=== PATIENT | female | born 1960 | race Caucasian/White ===

== ENCOUNTER → 2016-06-08 | Outpatient (CLI) | payer BC | END | disposition home or self-care (01) | LOC: C.MAMM 14:36 | PROVIDERS: ATTEND Internal Medicine Endocrinology, Diabetes & Metabolism | DX: N95.8 Other specified menopausal and perimenopausal disorders (principal) ==

== ENCOUNTER → 2016-06-30 | Outpatient (CLI) | payer BC ==
--- NOTE | 2016-06-30 15:21 | MAMMOGRAPHY REPORT ---
BILATERAL DIGITAL SCREENING MAMMOGRAM TOMOSYNTHESIS WITH CAD: 06/30/2016 TECHNIQUE: Breast tomosynthesis in addition to standard 2D mammography was performed. Current study was also evaluated with a Computer Aided Detection (CAD) system. COMPARISON: Comparison is made to exams dated: 06/28/2015 mammogram, 06/24/2014 mammogram, 02/01/2012 ma mmogram, 08/16/2010 mammogram, 02/25/2013 mammogram, and 08/02/2009 mammogram - [facility] nt. BREAST COMPOSITION: There are scattered areas of fibroglandular density in both breasts. FINDINGS: No suspicious masses, calcifications, or areas of architectural distortion are noted in e ither breast. There has been no significant interval change compared to prior exams. A biopsy marke r clip is again noted in the right upper inner quadrant. Scattered bilateral benign-appearing calci fications are not significantly changed. Faint asymmetry in the right lateral breast middle depth o n the CC view is similar to prior exams including the 2009 exam, and felt to represent normal fibrog landular tissue. IMPRESSION: ACR BI-RADS CATEGORY 2: BENIGN There is no mammographic evidence of malignancy. A 1 year screening mammogram is recommended. The p atient will receive written notification of the results. Approximately 10% of breast cancers are not detected with mammography. A negative mammographic repor t should not delay biopsy if a clinically suggestive mass is present. Bren Dunaway M.D. /:06/30/2016 14:54:43 Tire Bagger: Bria JIMÉNEZ)([place]), [facility] letter sent: Normal 1/2 BI-RADS Code: ACR BI-RADS Category 2: Benign
== END | disposition home or self-care (01) ==
LOC: C.MAMM 13:43
PROVIDERS: ATTEND Family Medicine
DX: Z12.31 Encounter for screening mammogram for malignant neoplasm of breast (principal)

== ENCOUNTER → 2017-05-08 | Outpatient (CLI) | payer BC | END | disposition home or self-care (01) | LOC: C.PAPS 13:31 | PROVIDERS: ATTEND Family Medicine | DX: Z01.419 Encounter for gynecological examination (general) (routine) without abnormal findings (principal) ==

== ENCOUNTER → 2017-07-02 | Outpatient (CLI) | payer OTHER ==
--- NOTE | 2017-07-02 15:04 | MAMMOGRAPHY REPORT ---
BILATERAL DIGITAL SCREENING MAMMOGRAM TOMOSYNTHESIS WITH CAD: 07/02/2017 CLINICAL HISTORY: Routine screening. TECHNIQUE: Breast tomosynthesis in addition to standard 2D mammography was performed. Current study was also evaluated with a Computer Aided Detection (CAD) system. COMPARISON: Comparison is made to exams dated: 06/30/2016 mammogram, 06/28/2015 mammogram, 06/24/2014 julian mogram, 02/25/2013 mammogram, 02/01/2012 mammogram, and 08/16/2010 mammogram - [facility] er. BREAST COMPOSITION: There are scattered areas of fibroglandular density in both breasts. FINDINGS: There is a stable biopsy marker clip in the upper inner posterior right breast. No suspici ous mass, architectural distortion or cluster of suspicious microcalcifications is seen. IMPRESSION: ACR BI-RADS CATEGORY 1: NEGATIVE There is no mammographic evidence of malignancy. A 1 year screening mammogram is recommended. The pa tient will receive written notification of the results. Approximately 10% of breast cancers are not detected with mammography. A negative mammographic report should not delay biopsy if a clinically suggestive mass is present. Danuta Hendrickson M.D. ay/:07/02/2017 14:50:37 Machine Striper: Cadence JASSO(R)([place]), [facility] letter sent: Normal 1/2 BI-RADS Code: ACR BI-RADS Category 1: Negative
== END | disposition home or self-care (01) ==
LOC: C.MAMM 13:40
PROVIDERS: ATTEND Family Medicine
DX: Z12.31 Encounter for screening mammogram for malignant neoplasm of breast (principal)

== ENCOUNTER 2025-03-30 23:03 | Observation (INO) ==
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
[2025-03-30 23:44] LABS: Base Excess VBG 4.2 mEq/L; HCO3 VBG 30 mmol/L; Oxygen Saturation VBG < 60.0 %; PCO2 VBG 50 mmHg (38-50); PO2 VBG 33 mmHg; pH VBG 7.39 (7.36-7.41)
[2025-03-30 23:47] LABS: Hematocrit (blood only) 23.2 % (37.0-47.0); Hemoglobin 7.0 g/dl (12.0-16.0); Mean Corpuscular Hemoglobin 26.3 pg (25.0-34.0); Mean Corpuscular Volume 87.2 fL (80.0-100.0); Platelet Count 69 K/uL (130-400); RDW Standard Deviation 63.7 fL (36.4-46.3); Red Blood Count 2.66 M/uL (4.20-5.40); White Blood Count 6.10 K/ul (4.8-10.8)
[2025-03-31 00:08] LABS: Alanine Aminotransferase 12.0 U/L (7-52); Albumin Globulin Ratio 0.9 (0.9-2); Albumin Level 3.6 gm/dl (3.4-5.0); Alkaline Phosphatase 83.0 U/L (34-104); Anion Gap 9.0 (3-11); Bilirubin,Total 0.4 mg/dl (0.2-1.0); Blood Urea Nitrogen 25.0 mg/dl (6-23); Calcium 9.3 mg/dl (8.6-10.3); Carbon Dioxide 27.0 mmol/L (21-32); Chloride 100.0 mmol/L (98-107); Creatinine Clr Calc Pharmacy 92.4 ml/min; Globulin 3.9 gm/dl (2.5-4.0); Glucose 129.0 mg/dl (70-99(Fasting)); Potassium 3.6 mmol/L (3.5-5.1); Sodium 136.0 mmol/L (136-145); Total Protein 7.5 gm/dl (6.0-8.3)
[2025-03-31 00:14] LABS: ALC (manual) 1.83 K/uL (1.2-3.4); ANC (manual) 3.23 K/uL (1.4-6.5); Anisocytosis Present; Polychromasia 1+; Tear Drop Cells 2+
[2025-03-31 00:23] LABS: INR 1.0 (0.9-1.1); Prothrombin Time 10.3 Seconds (9.0-12.0)
--- NOTE | 2025-03-31 00:32 | XRay Report ---
Exam(s): XR CXR 1 VIEW EXAM: XR Chest, 1 View CLINICAL HISTORY: Dyspnea. TECHNIQUE: Frontal view of the chest. COMPARISON: No relevant prior studies available. FINDINGS: Lungs: No focal consolidation. The pulmonary vasculature demonstrates no significant radiographic abnormality. Pleural space: Unremarkable. No pneumothorax. No large pleural effusion. Heart: Unremarkable. No cardiomegaly. Mediastinum: No significant abnormality identified. The trachea is midline. Bones/joints: Unremarkable. No acute fracture. Other findings: Stable postsurgical changes involving the cervical region. IMPRESSION: No focal consolidation or acute cardiopulmonary process identified. Electronically signed by: Frandy Ovalles MD 03/31/25 00:30 AM
[2025-03-31 00:47] LABS: Appearance Urine Clear (Clear); Bacteria Urine Automated None Seen (None Seen); Cast Urine Automated 0-2 /lpf (0-2); Glucose Urine UA Negative (Negative); RBC Urine Automated 0-2 /hpf (0-2)
[2025-03-31] MEDS ORDERED: SODIUM CHLORIDE 0.9% 100 ML IV PRN (01:14)
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
[2025-03-31] MEDS ORDERED: ALBUTEROL HFA 8 GM INHALER INH PRN (03:01)
[2025-03-31] MEDS ORDERED: ONDANSETRON INJ 2 MG/ML 2 ML VIAL IV PRN (03:01)
[2025-03-31] MEDS: LEVOTHYROXINE SODIUM 112 MCG TABLET PO SCH (06:02)
[2025-03-31 07:59] VITALS: TEMP 98.8; O2SAT 96
[2025-03-31] MEDS: CHOLECALCIFEROL 25 MCG (1000 UNITS) TAB PO SCH (08:26)
[2025-03-31] MEDS: ADVANCED PROBIOTIC 625 MG CAPSULE PO SCH (08:26)
[2025-03-31] MEDS: FLUTICASONE/VILANTEROL 100/25MCG 14 PUFFS/INHALER INH SCH (08:27)
--- NOTE | 2025-03-31 12:02 | Electrocardiogram Report ---
Test Reason : Blood Pressure : */* mmHG Vent. Rate : 81 BPM Atrial Rate : 81 BPM P-R Int : 176 ms QRS Dur : 82 ms QT Int : 400 ms P-R-T Axes : 69 24 35 degrees QTcB Int : 464 ms Normal sinus rhythm Normal ECG When compared with ECG of 12-Jun-2024 09:28, Criteria for Septal infarct are no longer Present Confirmed by Theron Lamas ([id number]) on 03/31/2025 12:02:51 PM Referred By: REFERRED SELF Confirmed By: Theron Lamas
[2025-03-31 12:37] LABS: Hematocrit (blood only) 28.7 % (37.0-47.0); Hemoglobin 8.9 g/dl (12.0-16.0)
--- NOTE | 2025-03-31 13:00 | XCELERA ---
[id number]
[2025-03-31] MEDS: ACETAMINOPHEN 325 MG TAB PO PRN (14:03)
[2025-03-31 14:56] VITALS: BP 173/86; PULSE 76; RESP 16
--- NOTE | 2025-03-31 19:46 | Discharge Summary ---
Discharge Summary Date of Service March 31, 2025 Principal Dx & Hospital Course #1 = Principal Diagnosis (1) Symptomatic anemia: (2) Anemia requiring transfusions: (3) Diffuse large B cell lymphoma: (4) Thrombocytopenia: Plan 64 years old female with a past medical history of FULL CODE @ home, morbid obesity with BMI 40.7 (height 167.6 cm; weight 114.5 kg), lumbar spine DJD, hyperlipidemia, HTN, chronic diastolic CHF with preserved LVEF 55-60% (as noted on 07/02/2024, 2:34pm TTE, CARDS Dr. Shawn Simpson), papillary thyroid CA, s/p thyroidectomy, s/p radioactive iodine ablation, leading to acquired hypothyroidism on synthroid 112 ug PO lFyz-Apeg-Lis- and synthroid 125ug PO eSlj-Cqx-Ftz, and diffuse large B-cell lymphoma (diagnosed on 03/06/2025, [facility], Pathologist Dr. Melody Patel), who presented to [facility] ER on 03/31/2025 with complaint of shortness of breath and dyspnea on exertion present for the past month, gradually worsening in the past week. However, today, 03/31/2025, patient noticed a more significant change in her breathing, without chest pain, nausea, or vomiting. Patient subsequently presented to [facility] ER for evaluation, and was found to have a worsening of her hemoglobin from pre-admission Hb 7.0 g/dL (03/06/2025, 8:16am) to admission Hb 7.0 g/dL (03/30/2025, 11:25pm) with no mucosal bleeding (e.g., hematemesis, hematochezia, melena, hematuria, hemoptysis, epistaxis, etc.). Hematology Oncology Office advised admission, and Hospitalist service was consulted for further evaluation, treatment and admission. Patient was subsequently admitted to the inpatient hospitalist service @ [facility] on 03/31/2025 with the following diagnoses: 1. Acute blood loss anemia of unclear etiology with admission Hb 7.0 g/dL (03/30/2025, 11:25pm) with no mucosal bleeding (e.g., hematemesis, hematochezia, melena, hematuria, hemoptysis, epistaxis, etc.). 2. Past medical history of papillary thyroid CA, s/p thyroidectomy, s/p radioactive iodine ablation, leading to acquired hypothyroidism on synthroid 112 ug PO eWwz-Fyod-Uip- and synthroid 125ug PO [id number]-Sti-Nfs. 3. Current medical history of diffuse large B-cell lymphoma (diagnosed on 03/06/2025, [facility], Pathologist Dr. Melody Patel). The following medical issues were addressed while the patient remained in [facility] on 03/31/2025: 1. Acute blood loss anemia of unclear etiology with admission Hb 7.0 g/dL (03/30/2025, 11:25pm) with no mucosal bleeding (e.g., hematemesis, hematochezia, melena, hematuria, hemoptysis, epistaxis, etc.). Hemoglobin dropped from pre-admission Hb 7.0 g/dL (03/06/2025, 8:16am) to admission Hb 7.0 g/dL (03/30/2025, 11:25pm) with no mucosal bleeding (e.g., hematemesis, hematochezia, melena, hematuria, hemoptysis, epistaxis, etc.). Patient subsequently received 2 units PRBC transfusion in [facility] ER on admission date 03/30/2025. Patient has a post-transfusion Hb 8.9 g/dL (, 11:52am) and feels "50% better than when I came into the hospital; I am ready to go back home now." Patient was subsequently discharged back to her home as patient did not want to remain in [facility] ER any longer, and was subsequently referred back to her [facility] Dr. Randy Sheth within 5-7 days of hospital discharge, for any further diagnostic evaluation of her acute blood loss anemia. 2. Past medical history of papillary thyroid CA, s/p thyroidectomy, s/p radioactive iodine ablation, leading to acquired hypothyroidism on synthroid 112 ug PO fKqp-Bnco-Cfq- and synthroid 125ug PO oPwa-Pdm-Mcq. Patient appears euthyroid on the above regimen with a normal screening TSH 3.112 uIU/mL (03/20/2025, 11:34am). Patient will subsequently continue this same synthroid regimen on hospital discharge back to her home on 03/31/2025. 3. Current medical history of diffuse large B-cell lymphoma (diagnosed on 03/06/2025, [facility], Pathologist Dr. Melody Patel). Patient reports that she has not yet begun chemotherapy as she is still undergoing testing with her [facility] Dr. Randy Sheth on an outpatient basis. Of note, patient underwent repeat TTE (03/31/2025, 1:00pm), as recommended by her [facility] Dr. Randy Sheth. cf., repeat TTE (03/31/2025, 1:00pm): 1. LVEF 60-65%. No regional wall motion abnormalities noted. Normal LV wall thickness. 2. RV systolic function normal. 3. Borderline LAE. RA mildly dilated. No ASD. Resolution does not allow assessment for PFO. 4. No . No AR. 5. PV not well visualized. 6. No MS. No MR. 7. No TS. Mild TR. 8. Aortic root normal size. Normal IVC size and collapsibility with sniff indicates normal RAP of 3 mm Hg. 9. No pericardial effusion. 10.No pleural effusion. 11.Diastolic dysfunction (grade II pseudonormalization pattern with MV E/A ratio (104.4 cm/sec / 73.9 cm/sec = 1.41). (as per CARDS Dr. Theron Lamas). cf., original TTE (07/02/2024, 2:34pm): 1. LVEF 55-60%. No regional wall motion abnormalities noted. Mild concentric LVH. 2. RV systolic function normal. 3. LA/RA normal size. No ASD. 4. No . No AR. 5. No PS. No WA. 6. No MS. No MR. 7. No TS. 8. Aortic root normal size. Normal IVC size and collapsibility with sniff indicates normal RAP of 3 mm Hg. 9. No pericardial effusion. 10.Diastolic dysfunction (grade II pseudonormalization pattern with MV E/A ratio (72.4 cm/sec / 58.7 cm/sec = 1.23). (as per CARDS Dr. Shawn Simpson). Admission HPI Per Admitting Provider The patient is a 64-year-old female with a past medical history including diffuse large B-cell lymphoma, thrombocytopenia, anemia, hypertension, hypothyroidism, thyroid cancer, LVH, dyslipidemia and lumbar spine DJD. She presents to the emergency department with complaint of shortness of breath endorsed dyspnea on exertion gradually worsening the past week. However today, she noticed a more significant change in her breathing, without chest pain or nausea or vomiting. She presented to the emergency department for evaluation, and was found to have a worsening of her hemoglobin from 7.7-7.0,. Hematology oncology office advised admission, and Sunday hospitalist service was consulted for further evaluation, treatment and admission. Patient has been ordered 2 units PRBC by ED. Discharge Exam Constitutional General: Comfortable, cooperative and coherent. Wide awake and alert. Not confused, lethargic, or obtunded. Patient speaks in complete, fluent, and articulate sentences, without pause, interruption, cough, or wheeze. HEENT: NC/AT. EOMI. PERRL. No nystagmus, gaze paresis, anisocoria, miosis, mydriasis, chemosis, hyphema, scleral injection, conjunctivitis, pterygium, facial droop, dysarthria, or pronator drift. No otorrhea. No rhinorrhea. Neck: Supple, no stridor, bruit, or goiter. Jugular venous pressure 3 cm above the sternal angle of [place], which is typically 5 cm above the right atrium. Lymph: No anterior/posterior cervical lymphadenopathy, supraclavicular/infraclavicular lymphadenopathy, axilla/epitrochlear/inguinal lymphadenopathy. Chest: Symmetric rise and fall with respirations. Non-tender to palpation. Heart: RRR, S1 and S2. No S3 or S4 summation gallop. No tripartite friction rub. No murmur. Lungs: Clear to auscultation and percussion. No audible expiratory wheeze, egophony, pectoriloquy, increase in tactile fremitus, or flatness/dullness to percussion at the bases. Abd: Soft, non-tender, non-distended. Bowel sounds auscultated in all 4 quadrants. No rebound, guarding, Conway's sign, or organomegaly. Ext: No clubbing, cyanosis, or edema. 2+ pedal pulses bilaterally. Skin: No decubitus ulcer or enanthem or exanthem. Neuro: Alert and oriented in regards to person, place, time, and situation. No tremors, tics, or myoclonus. DTR+. 5/5 motor strength in all 4 extremities, both proximally and distally. Urology: No sanchez catheter. No purewick. No urethral discharge. Discharge Plan Discharge Items Patient Disposition: Home - Self-Care Reason For Visit: SYMPTOMATIC ANEMIA Discharge Diagnosis: Symptomatic anemia RESOLVED with 2 units of packed RBC transfusion to treat admission Hb 7.0 g/dL (03/30/2025, 11:25pm) and post-transfusion Hb 8.9 g/dL (03/31/2025, 11:52am). Condition on Discharge: Fair Activity: Resume your previous activity Lifting: Gradually increase as tolerated Bathing: No limitations Sexual Activity: When tolerated Exercise/Sports: Gradually increase as tolerated Driving/Machine Use: No limitations Weightbearing: Full weightbearing Non-emergency contact: Primary Care Provider Call non-emergency contact if: you have any medication questions Follow-up/Referrals: Kaila Chisholm MD [Primary Care Provider] - Diet: Heart Healthy Addtl Attending Provider Instructions: 1. See your PCP Dr. Kaila Chisholm within 5-7 days of hospital discharge. 2. See your [facility] Dr. Randy Sheth within 5-7 days of hospital discharge. Pending Studies at Discharge: No Stand-Alone Forms: [facility] [email or web address], Smoking Cessation Medications and DC Order Prescriptions: Continued fluticasone propion-salmeterol [Advair Diskus] 100-50 mcg/dose blister with device 1 inh INHALATION QAM Qty: 180 3RF cholecalciferol (vitamin D3) 25 mcg (1,000 unit) capsule 25 mcg PO DAILY scopolamine base 1 mg over 3 days patch 3 day 1 patch transdermal Q3D PRN (Reason: motion sickness) Qty: 4 2RF ergocalciferol (vitamin D2) [Vitamin D2] 1,250 mcg (50,000 unit) capsule 1,250 mcg PO WK Qty: 12 0RF trazodone 50 mg tablet 150 mg PO HS Qty: 270 3RF albuterol sulfate 90 mcg/actuation Hfa Aerosol Inhaler 1 inh INHALATION QID PRN (Reason: sob) Probiotic 3 billion cell Capsule 3,000 mmu cells PO DAILY Rx Instructions: administer with a meal levothyroxine [Synthroid] 125 mcg tablet 125 mcg PO [id number] Rx Instructions: TAKES FRI, SAT & SUN. levothyroxine [Synthroid] 112 mcg tablet 112 mcg PO [id number] Rx Instructions: TAKES MON, TUES, WED, & THURS. Discharge Orders: Discharge Order (Routine); Ordered 03/31/25 Ordered By: Trevor Chapa Admission Data Admit Date/Time: 03/31/25 02:16 Attending Provider: Trevor Chapa Admit Provider: Neto Su Primary Care Provider: Kaila Chisholm Other Providers: Nikita East; Neto Su Other Interventions: Discharge Summary Assessment (RN) Last Done: 03/31/25 14:54 Hospital Stay Data Consultations 03/31/25 01:15 Consult Hematology Routine 03/31/25 01:41 ED Decision to Admit Stat Pending Results Patient Have Any Pending Studies at Discharge: No Discharge Instructions Given to Patient (Per Discharging Provider) 1. See your PCP Dr. Kaila Chisholm within 5-7 days of hospital discharge. 2. See your [facility] Dr. Randy Sheth within 5-7 days of hospital discharge. Total Time Total Time Spent Total Time Spent (In Minutes): 35 minutes. Of this time period, 19 minutes were spent in coordinating patient's discharge. Coding Level of Care Code 34349 INP/OBS DISCH >30 MIN Diagnoses Symptomatic anemia D64.9 Anemia requiring transfusions D64.9 Diffuse large B cell lymphoma C83.30 Thrombocytopenia D69.6
[2025-04-03] MEDS ORDERED: LEVOTHYROXINE SODIUM 125 MCG TABLET PO SCH (06:30)
== END 2025-03-31 14:54 | disposition home or self-care (01) ==
LOC: ED 23:03 → EDINP 23:03 → SUATTDRO 03-31 02:16 → EDINP 03-31 03:03

== ENCOUNTER 2025-04-17 23:09 | Inpatient (IN) ==
[2025-04-17] MEDS: OPTIRAY 320 100ml IT ONE (23:52)
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
[2025-04-17] MEDS: ONDANSETRON INJ 2 MG/ML 2 ML VIAL IV STA (23:58)
[2025-04-17] MEDS: MoRPHine SULFATE 4 MG/ML 1 ML CARP\\VIAL IV STA (23:58)
[2025-04-17] MEDS: FAMOTIDINE 20MG IV PUSH 20 MG/5 ML SYR IV STA (23:58)
[2025-04-17] MEDS: SODIUM CHLORIDE 0.9% 500 ML IV STA (23:59)
[2025-04-18 00:26] LABS: Hematocrit (blood only) 25.7 % (37.0-47.0); Hemoglobin 8.3 g/dL (12.0-16.0); Mean Corpuscular Hemoglobin 27.8 pg (25.0-34.0); Mean Corpuscular Volume 86.0 fL (80.0-100.0); Platelet Count 79 K/uL (130-400); RDW Standard Deviation 62.2 fL (36.4-46.3); Red Blood Count 2.99 M/uL (4.20-5.40); White Blood Count 4.20 K/ul (4.8-10.8)
[2025-04-18 00:30] LABS: Appearance Urine Clear (Clear); Bacteria Urine Automated None Seen (None Seen); Cast Urine Automated 0-2 /lpf (0-2); Epithelial Cell Urine Auto 0-2 /hpf (0-2); Glucose Urine UA Negative (Negative); RBC Urine Automated 0-2 /hpf (0-2)
[2025-04-18 00:44] LABS: Anion Gap 5 (3-11); Blood Urea Nitrogen 27 mg/dl (6-23); Calcium 8.7 mg/dl (8.6-10.3); Carbon Dioxide 28 mmol/L (21-32); Chloride 102 mmol/L (98-107); Creatinine Clr Calc Pharmacy 113.5 ml/min; Glucose 115 mg/dl (70-99(Fasting)); Potassium 4.2 mmol/L (3.5-5.1); Sodium 135 mmol/L (136-145)
--- NOTE | 2025-04-18 00:57 | XRay Report ---
EXAM: XR chest 1V portable CLINICAL HISTORY: chest pain. TECHNIQUE: An X-ray image of the chest is obtained in AP projection. COMPARISON: X-ray of the chest, dated 04/03/[address] angiography of the chest, dated 04/05/2025. FINDINGS: The right-sided permacath is seen with the distal end at the right atrium. Pulmonary Parenchyma: No evidence of consolidation, collapse, or focal opacities. No pulmonary nodules are identified. Left lower lung zone atelectatic band. No evidence of pleural effusion or pleural thickening. Heart and Mediastinum: Heart size and shape are normal. No mediastinal widening or masses. No hilar or mediastinal lymphadenopathy. Bony Thorax: Bony thorax appears intact without fractures or deformities. Soft Tissues: Surgical clips seen in the neck. ECG leads are seen overlying the chest. IMPRESSION: 1. No acute cardiopulmonary abnormalities are identified. 2. Right side permacath is seen with the distal end at the right atrium. Stable. 3. No significant interval changes from the previous study. Electronically signed by Mina Guaman 04-18-2025 12:57 AM
[2025-04-18 01:03] LABS: Alanine Aminotransferase 13 U/L (7-52); Albumin Globulin Ratio 1.0 (0.9-2); Albumin Level 3.4 gm/dl (3.4-5.0); Alkaline Phosphatase 59 U/L (34-104); Bilirubin,Total 0.4 mg/dl (0.2-1.0); Globulin 3.3 gm/dl (2.5-4.0); Lipase 438 U/L (11-82); Magnesium 2.4 mg/dl (1.7-2.4); Total Protein 6.7 gm/dl (6.0-8.3); Uric Acid < 1.5 mg/dl (2.6-7.2)
[2025-04-18 01:10] LABS: INR 1.0 (0.9-1.1); Partial Thromboplastin Time 23 Seconds (21-31); Prothrombin Time 10.4 Seconds (9.0-12.0)
[2025-04-18 01:33] LABS: Anisocytosis Present; Immature Granulocytes # (auto) 0.30 K/uL (0.01-0.20); Immature Granulocytes % (auto) 7.1 %; Tear Drop Cells 2+
[2025-04-18] MEDS: MoRPHine SULFATE 4 MG/ML 1 ML CARP\\VIAL IV STA (01:53)
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
--- NOTE | 2025-04-18 02:08 | CT Scan Report ---
EXAM: CT abd pelvis IV con only CLINICAL HISTORY: Epig pain. TECHNIQUE: CT of the abdomen and pelvis was performed with contrast, 94 ml optiray 320 with the following protocol: axial images with, and reconstructed coronal and sagittal images. One of the following dose reduction techniques was utilized for this exam: Automated exposure control, adjustment of the mA and/or kV according to patient size, and use of iterative reconstruction. COMPARISON: Comparison is made with previous imaging study dated 02/06/2025 FINDINGS: Abdomen: Liver: enlarged (20cm ) with two hypodense focal lesions seen in segment of the right lobe measuring about 9 and 6 mm (stable) Hepatic vasculature and biliary ducts are unremarkable. Gallbladder and Biliary System: The gallbladder is normal in size and shape and is seen harbouring a radiodense stone measuring about 16 mm in diameter (stable). No wall thickening, or pericholecystic fluid, The common bile duct is normal in caliber without dilation. Pancreas: Pancreatic head, body, and tail are visualized and appear normal in size and density. No pancreatic masses or calcifications were noted. The pancreatic duct is not dilated. Spleen: enlarged (18 cm) (stable) No splenic lesions or masses were identified. Appendix: No evidence of appendiceal abscess or perforation. Kidneys and Adrenal Glands: Both kidneys are normal in size, shape, and position. Cortical thickness is within normal limits. No renal calculi or hydronephrosis. Adrenal glands are unremarkable with no evidence of masses or hyperplasia. Pelvis: Urinary Bladder: Normal in contour and wall thickness. No intraluminal lesions identified. Uterus: Normal in size and contour. No masses or abnormal thickening. Ovaries: Not well visualized but no gross abnormalities noted. Peritoneal and Retroperitoneal Structures: No free fluid or abnormal fluid collections were identified within the abdomen or pelvis. No lymphadenopathy was noted. Bowel: The visualized bowel loops are normal in caliber and appearance. No evidence of bowel obstruction or wall thickening. Bones and Soft Tissues: Lytic 1 cm lesion is seen in the right anterior acetabular pillar with intact cortical outline , dedicated assessment is advised if clinically warranted (stable) Lower lumbar spondylodegenerative changes and vacuum phenomena.(stable) IMPRESSION: 1. No evidence of acute intra-abdominal pathology. 2. Hepatosplenomegaly (stable) 3. hepatic focal lesions likely cysts (stable) 4. calcular gall bladder (stable) 5. Lytic 1 cm lesion is seen in the right anterior acetabular pillar with intact cortical outline , dedicated assessment is advised if clinically warranted (stable) 6. Lower lumbar spondylodegenerative changes and vacuum phenomena.(stable) Electronically signed by Mina Guaman 04-18-2025 02:08 AM
[2025-04-18] MEDS ORDERED: ACYCLOVIR 400 MG TAB PO PRN (03:02)
[2025-04-18] MEDS ORDERED: MoRPHine SULFATE 4 MG/ML 1 ML CARP\\VIAL IV PRN (03:02)
[2025-04-18] MEDS ORDERED: predniSONE 20 MG TAB PO PRN (03:02)
[2025-04-18] MEDS ORDERED: SCOPOLAMINE 1 MG/72 HR TDSY PATCH TD PRN (03:02)
[2025-04-18] MEDS ORDERED: MoRPHine SULFATE 2 MG/ML CARP IV PRN (03:02)
[2025-04-18] MEDS ORDERED: POLYETHYLENE (MIRALAX) 17 GM PACK PO PRN (03:02)
[2025-04-18] MEDS ORDERED: ALBUTEROL HFA 8 GM INHALER INH PRN (03:02)
[2025-04-18] MEDS: LACTATED RINGER'S 1,000 ML IV SCH (04:05)
[2025-04-18] MEDS: MoRPHine SULFATE 4 MG/ML 1 ML CARP\\VIAL IV PRN (05:20)
[2025-04-18 06:54] LABS: Magnesium 2.3 mg/dl (1.7-2.4); Uric Acid < 1.5 mg/dl (2.6-7.2)
[2025-04-18] MEDS: LEVOTHYROXINE SODIUM 125 MCG TABLET PO SCH (07:12)
[2025-04-18] MEDS: FLUTICASONE/VILANTEROL 100/25MCG 14 PUFFS/INHALER INH SCH (08:26)
[2025-04-18] MEDS: NYSTATIN/TRIAMCIN OINT 15 GM TUBE EXT SCH (08:28)
[2025-04-18] MEDS: ACYCLOVIR 400 MG TAB PO SCH (08:28)
[2025-04-18] MEDS: predniSONE 20 MG TAB PO SCH (08:28)
[2025-04-18] MEDS: ENOXAPARIN INJ 40 MG/0.4 ML SYR SQ SCH (08:29)
[2025-04-18] MEDS: ONDANSETRON INJ 2 MG/ML 2 ML VIAL IV PRN (09:42)
[2025-04-18 13:01] VITALS: RESP 16
--- NOTE | 2025-04-18 14:03 | Hospitalist Progress Note ---
Date of Service April 18, 2025 Assessment & Plan (1) Pancreatitis: (2) Lymphoma: (3) Dyslipidemia: (4) Hypothyroidism: Plan 64yo female with history of diffuse large B-cell lymphoma recently started on chemotherapy and hypothyroidism who presented with abdominal pain and bloating. Workup on arrival revealed an elevated lipase at 438. She was admitted for management of acute pancreatitis. #Acute pancreatitis - elevated lipase likely secondary to chemotherapy agents. Patient with epigastric abdominal pain. CT of the abdomen with no pancreatitis present - LR at 200mL/hr x 2L - Pain regimen: Tylenol PRN mild pain, morphine 2-4 mg PRN modsevere pain - Zofran PRN nausea - One episode of emesis this morning but patient feels this was due to taking her morning medications on an empty stomach. She has not had any further nausea or vomiting since then and is not experiencing abdominal pain now - Diet advanced to clear liquids. If well-tolerates, can advance to low fat diet tomorrow 04/19 #Diffuse large B-cell lymphoma / recent tumor lysis syndrome - uric acid WNL now following treatment with Rasburicase and IVF - Continue IVF as above - Uric acid, Mag, BMP stable - repeat with AM labs - Continue Allopurinol 300mg po daily - Received final dose of Prednisone 04/18 per chemotherapy protocol - Continue Claritin 10mg po qHS for bone pain - Heme-Onc consultation appreciated - no change in current management - Continue Acyclovir 400mg po BID and Bactrim 3x weekly per chemotherapy regimen - chronic suppressive therapy #Pancytopenia - near baseline. No active bleed - Monitor CBC. Transfuse for hgb <7.0 #Hypothyroidism - TSH WNL in Feb 2025. Continue Synthroid, alternating 125 and 112mcg VTE PPx: Lovenox Dispo: continued inpatient stay Advanced diet Updated at bedside Admission and Anticipated Discharge Date Admission Date: April 18, 2025 Subjective Patient seen and evaluated at bedside with her present. She reports that this morning, she felt nauseated and did have 1 episode of vomiting. She believes this was due to taking her morning medications on an empty stomach. She reports that she has not had any further vomiting since her episode earlier this morning. She denies any nausea at this time. Her abdominal pain is much improved now. She had clear liquids and tolerated this well. We discussed continuing the clear liquid diet today and likely advancement to a low fat diet tomorrow. No additional complaints or concerns at this time. Physical Exam Physical Exam: General: No acute distress, nondiaphoretic, well-developed, well-nourished. Skin: Warm, dry. No rashes or peripheral edema noted. Cardiac: Regular rate and rhythm without murmurs gallops or rubs. Pulm: Clear to auscultation bilaterally without wheezes, rales or rhonchi. Normal respiratory effort. 98% on room air. Abdominal: Soft, nondistended. Very minimal tenderness to palpation of epigastrium. Bowel sounds present. Neuro: A&O x3. No focal neurological deficits. Results & Data Results & Data Vital Signs (Past 12 Hours) Vital Signs Temp Pulse Pulse Pulse Resp BP BP 04/18/25 13:00 97.3 F L 61 16 130/72 04/18/25 08:00 66 13 117/66 04/18/25 06:59 62 04/18/25 05:35 04/18/25 05:30 59 L 15 04/18/25 05:26 112/04/18/25 05:26 112/04/18/25 05:26 112/04/18/25 05:26 112/04/18/25 05:26 112/04/18/25 05:24 61 20 04/18/25 05:21 64 14 04/18/25 05:12 65 15 04/18/25 05:00 60 15 04/18/25 04:51 59 L 19 04/18/25 04:42 62 16 04/18/25 04:30 61 18 04/18/25 04:21 63 19 04/18/25 04:12 60 14 04/18/25 04:00 129/66 04/18/25 04:00 129/66 04/18/25 04:00 129/66 04/18/25 04:00 129/66 04/18/25 04:00 129/04/18/25 04:00 61 16 04/18/25 03:51 58 L 16 04/18/25 03:42 62 14 04/18/25 03:30 58 L 15 04/18/25 03:21 63 14 04/18/25 03:12 56 L 16 04/18/25 03:06 148/76 H 04/18/25 03:06 148/76 H 04/18/25 03:06 148/76 H 04/18/25 03:06 148/76 H 04/18/25 03:06 148/76 H 04/18/25 03:06 56 L 13 04/18/25 03:03 72 14 04/18/25 02:51 63 16 04/18/25 02:42 58 L 14 04/18/25 02:30 54 L 16 04/18/25 02:21 58 L 12 04/18/25 02:12 56 L 14 04/18/25 02:00 58 L 14 04/18/25 02:00 139/81 04/18/25 02:00 139/81 04/18/25 02:00 139/81 04/18/25 02:00 139/81 04/18/25 02:00 139/81 Pulse Ox O2 Del Method 04/18/25 13:00 98 Room Air 04/18/25 08:00 95 Room Air 04/18/25 06:59 04/18/25 05:35 Room Air 04/18/25 05:30 92 04/18/25 05:26 04/18/25 05:26 04/18/25 05:26 04/18/25 05:26 04/18/25 05:26 04/18/25 05:24 96 04/18/25 05:21 97 04/18/25 05:12 97 04/18/25 05:00 95 04/18/25 04:51 95 04/18/25 04:42 94 04/18/25 04:30 94 04/18/25 04:21 94 04/18/25 04:12 94 04/18/25 04:00 04/18/25 04:00 04/18/25 04:00 04/18/25 04:00 04/18/25 04:00 04/18/25 04:00 94 04/18/25 03:51 92 04/18/25 03:42 94 04/18/25 03:30 93 04/18/25 03:21 96 04/18/25 03:12 100 04/18/25 03:06 04/18/25 03:06 04/18/25 03:06 04/18/25 03:06 04/18/25 03:06 04/18/25 03:06 100 04/18/25 03:03 96 04/18/25 02:51 04/18/25 02:42 04/18/25 02:30 04/18/25 02:21 04/18/25 02:12 04/18/25 02:00 04/18/25 02:00 04/18/25 02:00 04/18/25 02:00 04/18/25 02:00 04/18/25 02:00 Laboratory Results Reviewed CBC, BMP, liver panel, uric acid PG Care Time/CCT Total # of Minutes Spent Total Time Spent with Patient: Total time spent is greater than 50% in coordination of care (as documented) at patient's floor/unit and/or counseling patient: Coding Level of Care Code None Diagnoses Pancreatitis K85.90 Acute pancreatitis complication: unspecified Chronicity: acute Pancreatitis type: unspecified pancreatitis type Lymphoma C85.10 B-cell lymphoma type: unspecified B-cell Lymphoma site: unspecified region Lymphoma type: non-Hodgkin - not in remission Non-Hodgkin lymphoma type: B-cell Dyslipidemia E78.5 Hypothyroidism E03.9 (1) Pancreatitis Acute pancreatitis complication: unspecified Chronicity: acute Pancreatitis type: unspecified pancreatitis type Qualified Code(s): K85.90 - Acute pancreatitis without necrosis or infection, unspecified (2) Lymphoma B-cell lymphoma type: unspecified B-cell Lymphoma site: unspecified region Lymphoma type: non-Hodgkin - not in remission Non-Hodgkin lymphoma type: B-cell Qualified Code(s): C85.10 - Unspecified B-cell lymphoma, unspecified site
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
[2025-04-18 15:44] LABS: Hematocrit (blood only) 24.6 % (37.0-47.0); Hemoglobin 7.8 g/dL (12.0-16.0); Mean Corpuscular Hemoglobin 27.3 pg (25.0-34.0); Mean Corpuscular Volume 86.0 fL (80.0-100.0); Platelet Count 67 K/uL (130-400); RDW Standard Deviation 63.2 fL (36.4-46.3); Red Blood Count 2.86 M/uL (4.20-5.40); White Blood Count 3.20 K/ul (4.8-10.8)
[2025-04-18 16:02] LABS: Anion Gap 3 (3-11); Blood Urea Nitrogen 23 mg/dl (6-23); Calcium 8.2 mg/dl (8.6-10.3); Carbon Dioxide 28 mmol/L (21-32); Chloride 101 mmol/L (98-107); Creatinine Clr Calc Pharmacy 117.2 ml/min; Glucose 140 mg/dl (70-99(Fasting)); Potassium 4.4 mmol/L (3.5-5.1); Sodium 132 mmol/L (136-145)
[2025-04-18 16:16] LABS: Alanine Aminotransferase 12 U/L (7-52); Albumin Level 3.1 gm/dl (3.4-5.0); Alkaline Phosphatase 55 U/L (34-104); Bilirubin,Total 0.4 mg/dl (0.2-1.0); Magnesium 2.2 mg/dl (1.7-2.4); Total Protein 6.2 gm/dl (6.0-8.3); Uric Acid < 1.5 mg/dl (2.6-7.2)
[2025-04-18] MEDS: DOCUSATE SODIUM/SENNA 50/8.6MG TAB PO SCH (21:46)
[2025-04-18] MEDS: LORATADINE 10 MG TAB PO SCH (22:04)
[2025-04-19] MEDS: ACETAMINOPHEN 325 MG TAB PO PRN (04:38)
[2025-04-19] MEDS: MoRPHine SULFATE 2 MG/ML CARP IV PRN (06:15)
[2025-04-19 06:40] LABS: Hematocrit (blood only) 26.9 % (37.0-47.0); Hemoglobin 8.7 g/dL (12.0-16.0); Mean Corpuscular Hemoglobin 27.6 pg (25.0-34.0); Mean Corpuscular Volume 85.4 fL (80.0-100.0); Platelet Count 73 K/uL (130-400); RDW Standard Deviation 60.9 fL (36.4-46.3); Red Blood Count 3.15 M/uL (4.20-5.40); White Blood Count 2.92 K/ul (4.8-10.8)
[2025-04-19 07:04] LABS: Anion Gap 5 (3-11); Blood Urea Nitrogen 19 mg/dl (6-23); Calcium 8.8 mg/dl (8.6-10.3); Carbon Dioxide 29 mmol/L (21-32); Chloride 100 mmol/L (98-107); Creatinine Clr Calc Pharmacy 123.1 ml/min; Glucose 92 mg/dl (70-99(Fasting)); Potassium 4.0 mmol/L (3.5-5.1); Sodium 134 mmol/L (136-145)
[2025-04-19 07:06] LABS: Alanine Aminotransferase 12 U/L (7-52); Albumin Level 3.7 gm/dl (3.4-5.0); Alkaline Phosphatase 53 U/L (34-104); Bilirubin,Total 0.5 mg/dl (0.2-1.0); Magnesium 2.4 mg/dl (1.7-2.4); Total Protein 6.8 gm/dl (6.0-8.3); Uric Acid < 1.5 mg/dl (2.6-7.2)
[2025-04-19 07:29] VITALS: TEMP 97.7; O2SAT 99
--- NOTE | 2025-04-19 12:20 | Electrocardiogram Report ---
Test Reason : Blood Pressure : */* mmHG Vent. Rate : 63 BPM Atrial Rate : 63 BPM P-R Int : 192 ms QRS Dur : 82 ms QT Int : 398 ms P-R-T Axes : 69 20 30 degrees QTcB Int : 407 ms Normal sinus rhythm Normal ECG When compared with ECG of 05-Apr-2025 00:11, No significant change was found Confirmed by Melinda Varela (Stephenie) on 04/19/2025 12:20:08 PM Referred By: REFERRED SELF Confirmed By: Melinda Varela
[2025-04-19 13:49] VITALS: BP 130/72; PULSE 66
--- NOTE | 2025-04-19 13:57 | Discharge Summary ---
Discharge Summary Date of Service April 19, 2025 Principal Dx & Hospital Course #1 = Principal Diagnosis (1) Pancreatitis: (2) Lymphoma: (3) Pancytopenia: Plan 64yo female with history of diffuse large B-cell lymphoma recently started on chemotherapy and hypothyroidism who presented with abdominal pain and bloating. Workup on arrival revealed an elevated lipase at 438. She was admitted for management of acute pancreatitis. #Acute pancreatitis - elevated lipase at 438 likely secondary to chemotherapy agents. Patient with epigastric abdominal pain. CT of the abdomen with no pancreatitis present - S/p LR at 200mL/hr x 2L - No further abdominal pain, nausea, or vomiting - Well-tolerated advancement to low fat diet. Reviewed low fat diet options and what foods to avoid, alcohol avoidance, and staying hydrated #Diffuse large B-cell lymphoma / recent tumor lysis syndrome - uric acid WNL now following treatment with Rasburicase and IVF -Received IVF as above - Uric acid, Mag, BMP stable - Continue Allopurinol 300mg po daily - Received final dose of Prednisone 04/18 per chemotherapy protocol - Continue Claritin 10mg po qHS for bone pain - Heme-Onc consultation appreciated - no change in current management. Follow- up outpatient as directed - Continue Acyclovir 400mg po BID and Bactrim 3x weekly per chemotherapy regimen - chronic suppressive therapy #Pancytopenia - near baseline. No active bleed - Monitor CBC. Transfuse for hgb <7.0 #Hypothyroidism - TSH WNL in Feb 2025. Continue Synthroid, alternating 125 and 112mcg VTE PPx: Lovenox Dispo: discharged home 04/19 Notes For Next Care Provider NICOLA Supervision Note: I did not personally see or examine the patient today, but I verified all dawson points of NICOLA Stiles's assessment and plan with the following exceptions/additions: None Medication Changes From Visit no changes Admission HPI Per Admitting Provider Simin Plasencia is a pleasant 64yo female with diffuse large B-cell lymphoma. She follows with Dr. East from Hematology/Oncology. Patient just started her first cycle of chemotherapy with Brad-R-CHP. She reports feeling well for the first two days, however on 04/16/25 she developed some abdominal pain and bloating. Her pain worsened throughout the day. She was seen by Hematology/Oncology today and was found to have tumor lysis syndrome. She was treated with Rasburicase and IVF and sent home with a prescription for Allopurinol. She presents to the ER tonight with worsening abdominal pain. No fever, chills, chest pain, cough, SOB. Discharge Exam General: No acute distress, nondiaphoretic, well-developed, well-nourished. Skin: Warm, dry. No rashes or peripheral edema noted. Cardiac: Regular rate and rhythm without murmurs gallops or rubs. Pulm: Clear to auscultation bilaterally without wheezes, rales or rhonchi. Normal respiratory effort. 99% on room air. Abdominal: Soft, nondistended. Very minimal tenderness to palpation of epigastrium. Bowel sounds present. Neuro: A&O x3. No focal neurological deficits. Discharge Plan Discharge Items Patient Disposition: Home - Self-Care Reason For Visit: ABDOMINAL PAIN, ELEVATED LIPASE Discharge Diagnosis: Pancreatitis Condition on Discharge: Fair Activity: Resume your previous activity Non-emergency contact: Primary Care Provider and Oncologist Call non-emergency contact if: you have any medication questions, your symptoms worsen, your pain is not controlled and you have a fever Follow-up/Referrals: Kaila Chisholm MD [Primary Care Provider] - (Follow-up in 1-2 weeks) Diet: Low Fat Addtl Attending Provider Instructions: Eli, You were admitted to the hospital with pancreatitis. Pancreatitis is inflammation of the pancreas. In your case, it was likely triggered by your chemotherapy agents. Symptoms of pancreatitis include abdominal pain, nausea, and vomiting. You have tolerated your diet advancement and are now ready to be discharged home. Upon discharge from the hospital: * Follow a low-fat diet. Start with small, low-fat, soft or solid meals (such as lean meats, rice, Posta, cooked vegetables, and fruit). Avoid fried, greasy, or fatty foods, and limit alcohol completely. If you feel nauseated or have trouble eating, try bland foods and eat smaller portions more often. * Drink plenty of fluids, such as water or clear juices, to stay hydrated. Dehydration can worsen pancreatitis. * You can take Tylenol as needed for pain. * Continue your other home medications as prescribed. * Follow-up with your PCP in 1-2 weeks. * Follow-up with your oncologist as directed. Please return to the hospital if you experience any of the following: Severe or worsening abdominal pain, persistent vomiting or inability to keep fluids down, fever of 100 1F or higher, shortness of breath, chest pain, confusion, new or worsening diarrhea, passing out, or any other symptoms concerning for you. It was a pleasure taking care of you while you were in the hospital! Pending Studies at Discharge: No Stand-Alone Forms: [facility], Smoking Cessation Medications and DC Order Prescriptions: Continued fluticasone propion-salmeterol [Advair Diskus] 100-50 mcg/dose blister with device 1 inh INHALATION QAM Qty: 180 3RF albuterol sulfate 90 mcg/actuation HFA aerosol inhaler 1 inh INHALATION QID PRN (Reason: sob) Qty: 6.7 1RF cholecalciferol (vitamin D3) 25 mcg (1,000 unit) capsule 25 mcg PO DAILY scopolamine base 1 mg over 3 days patch 3 day 1 patch transdermal Q3D PRN (Reason: motion sickness) Qty: 4 2RF ergocalciferol (vitamin D2) [Vitamin D2] 1,250 mcg (50,000 unit) capsule 1,250 mcg PO WK Qty: 12 0RF trazodone 50 mg tablet 150 mg PO HS Qty: 270 3RF nystatin-triamcinolone 100,000-0.1 unit/gram-% ointment 1 applic topical BID 14 Days Qty: 30 1RF Probiotic 3 billion cell Capsule 3,000 mmu cells PO DAILY Rx Instructions: administer with a meal levothyroxine [Synthroid] 125 mcg tablet 125 mcg PO 3XWK Rx Instructions: TAKES SUN, SUN & SUN. levothyroxine [Synthroid] 112 mcg tablet 112 mcg PO 4XWK Rx Instructions: TAKES MON, , WED, & TH. prednisone 20 mg tablet 20 mg PO DIRECTED PRN (Reason: PER CHEMO REGIMENT) acyclovir 400 mg tablet 400 mg PO BID PRN (Reason: PER CHEMO REGIMENT) sulfamethoxazole-trimethoprim 800-160 mg tablet 1 tab PO 3XWK PRN (Reason: PER CHEMO REGIMENT) Rx Instructions: MON, WED, & FRI Discharge Orders: Discharge Order (Routine); Ordered 04/19/25 Ordered By: Melody Stiles Admission Data Admit Date/Time: 04/18/25 02:07 Attending Provider: Erin Rick Admit Provider: Kristi Olson Primary Care Provider: Kaila Chisholm Other Providers: Kristi Olson; Nikita East Other Interventions: Discharge Summary Assessment (RN) Last Done: 04/19/25 13:48 Hospital Stay Data Consultations 04/18/25 01:45 ED Decision to Admit Stat 04/18/25 04:42 Consult Hematology Routine Diagnostic Imagining Performed Chest X-Ray 04/17/25 23:43 EXAM: XR chest 1V portable CLINICAL HISTORY: chest pain. TECHNIQUE: An X-ray image of the chest is obtained in AP projection. COMPARISON: X-ray of the chest, dated 04/03/[address] angiography of the chest, dated 04/05/2025. FINDINGS: The right-sided permacath is seen with the distal end at the right atrium. Pulmonary Parenchyma: No evidence of consolidation, collapse, or focal opacities. No pulmonary nodules are identified. Left lower lung zone atelectatic band. No evidence of pleural effusion or pleural thickening. Heart and Mediastinum: Heart size and shape are normal. No mediastinal widening or masses. No hilar or mediastinal lymphadenopathy. Bony Thorax: Bony thorax appears intact without fractures or deformities. Soft Tissues: Surgical clips seen in the neck. ECG leads are seen overlying the chest. IMPRESSION: 1. No acute cardiopulmonary abnormalities are identified. 2. Right side permacath is seen with the distal end at the right atrium. Stable. 3. No significant interval changes from the previous study. Electronically signed by Mina Guaman 04-18-2025 12:57 AM Abdomen/Pelvis CT 04/17/25 23:49 EXAM: CT abd pelvis IV con only CLINICAL HISTORY: Epig pain. TECHNIQUE: CT of the abdomen and pelvis was performed with contrast, 94 ml optiray 320 with the following protocol: axial images with, and reconstructed coronal and sagittal images. One of the following dose reduction techniques was utilized for this exam: Automated exposure control, adjustment of the mA and/or kV according to patient size, and use of iterative reconstruction. COMPARISON: Comparison is made with previous imaging study dated 02/06/2025 FINDINGS: Abdomen: Liver: enlarged (20cm ) with two hypodense focal lesions seen in segment of the right lobe measuring about 9 and 6 mm (stable) Hepatic vasculature and biliary ducts are unremarkable. Gallbladder and Biliary System: The gallbladder is normal in size and shape and is seen harbouring a radiodense stone measuring about 16 mm in diameter (stable). No wall thickening, or pericholecystic fluid, The common bile duct is normal in caliber without dilation. Pancreas: Pancreatic head, body, and tail are visualized and appear normal in size and density. No pancreatic masses or calcifications were noted. The pancreatic duct is not dilated. Spleen: enlarged (18 cm) (stable) No splenic lesions or masses were identified. Appendix: No evidence of appendiceal abscess or perforation. Kidneys and Adrenal Glands: Both kidneys are normal in size, shape, and position. Cortical thickness is within normal limits. No renal calculi or hydronephrosis. Adrenal glands are unremarkable with no evidence of masses or hyperplasia. Pelvis: Urinary Bladder: Normal in contour and wall thickness. No intraluminal lesions identified. Uterus: Normal in size and contour. No masses or abnormal thickening. Ovaries: Not well visualized but no gross abnormalities noted. Peritoneal and Retroperitoneal Structures: No free fluid or abnormal fluid collections were identified within the abdomen or pelvis. No lymphadenopathy was noted. Bowel: The visualized bowel loops are normal in caliber and appearance. No evidence of bowel obstruction or wall thickening. Bones and Soft Tissues: Lytic 1 cm lesion is seen in the right anterior acetabular pillar with intact cortical outline , dedicated assessment is advised if clinically warranted (stable) Lower lumbar spondylodegenerative changes and vacuum phenomena.(stable) IMPRESSION: 1. No evidence of acute intra-abdominal pathology. 2. Hepatosplenomegaly (stable) 3. hepatic focal lesions likely cysts (stable) 4. calcular gall bladder (stable) 5. Lytic 1 cm lesion is seen in the right anterior acetabular pillar with intact cortical outline , dedicated assessment is advised if clinically warranted (stable) 6. Lower lumbar spondylodegenerative changes and vacuum phenomena.(stable) Electronically signed by Mina Guaman 04-18-2025 02:08 AM Pending Results Patient Have Any Pending Studies at Discharge: No Discharge Instructions Given to Patient (Per Discharging Provider) Eli, You were admitted to the hospital with pancreatitis. Pancreatitis is inflammation of the pancreas. In your case, it was likely triggered by your chemotherapy agents. Symptoms of pancreatitis include abdominal pain, nausea, and vomiting. You have tolerated your diet advancement and are now ready to be discharged home. Upon discharge from the hospital: * Follow a low-fat diet. Start with small, low-fat, soft or solid meals (such as lean meats, rice, Posta, cooked vegetables, and fruit). Avoid fried, greasy, or fatty foods, and limit alcohol completely. If you feel nauseated or have trouble eating, try bland foods and eat smaller portions more often. * Drink plenty of fluids, such as water or clear juices, to stay hydrated. Dehydration can worsen pancreatitis. * You can take Tylenol as needed for pain. * Continue your other home medications as prescribed. * Follow-up with your PCP in 1-2 weeks. * Follow-up with your oncologist as directed. Please return to the hospital if you experience any of the following: Severe or worsening abdominal pain, persistent vomiting or inability to keep fluids down, fever of 100 1F or higher, shortness of breath, chest pain, confusion, new or worsening diarrhea, passing out, or any other symptoms concerning for you. It was a pleasure taking care of you while you were in the hospital! Total Time Total Time Spent Total Time Spent (In Minutes): Greater than 30 minutes spent completing this discharge process including direct patient care, medication reconciliation, documentation, review of labs and images, and coordination of care. Coding Level of Care Code 42154 INP/OBS DISCH >30 MIN Diagnoses Pancreatitis K85.90 Acute pancreatitis complication: unspecified Chronicity: acute Pancreatitis type: unspecified pancreatitis type Lymphoma C85.10 B-cell lymphoma type: unspecified B-cell Lymphoma site: unspecified region Lymphoma type: non-Hodgkin - not in remission Non-Hodgkin lymphoma type: B-cell Pancytopenia D61.818
[2025-04-20] MEDS ORDERED: LEVOTHYROXINE SODIUM 112 MCG TABLET PO SCH (06:30)
[2025-04-20] MEDS ORDERED: SULFAMETHOXAZOLE/TRIMETHOPRIM DS 800/160MG TAB PO SCH (09:00)
== END 2025-04-19 14:58 | disposition home or self-care (01) | DRG 438 ==
LOC: ED 23:09 → SUATTDRO 04-18 02:07 → EDINP 04-18 02:07 → 3E 04-18 03:03